=== PATIENT | female | born 1995 | race Caucasian/White ===

== ENCOUNTER 2021-07-05 21:12 | Emergency (ER) | payer OTHER ==
[~2021-07-05 21:12] MED LIST: BACTRIM 400-801 EACH PO
[2021-07-06] MEDS ORDERED: BACTRIM DS TAB1 EACH PO (00:24)
== END 2021-07-06 00:43 | disposition home or self-care (01) ==
LOC: ER1 21:12
DX: L03.115 Cellulitis of right lower limb (principal)
CPT/HCPCS: 56420; 87070; 87077; 87186; 87205; 96361; 96374; 96375; 99283; J1170; J2060